=== PATIENT | female | born 1980 | race Caucasian/White ===

== ENCOUNTER 2016-09-05 14:43 | Emergency (ER) | payer SELFPAY | END 2016-09-05 17:16 | disposition home or self-care (01) | LOC: D.ER 14:43 | DX: S16.1XXA Strain of muscle, fascia and tendon at neck level, initial encounter (principal); V43.52XA Car driver injured in collision with other type car in traffic accident, initial encounter; Y93.89 Activity, other specified; Y92.410 Unspecified street and highway as the place of occurrence of the external cause; M62.838 Other muscle spasm; F41.9 Anxiety disorder, unspecified; F17.200 Nicotine dependence, unspecified, uncomplicated ==

== ENCOUNTER → 2017-09-24 21:41 | Emergency (ER) | payer OTHER | END | disposition home or self-care (01) | LOC: D.ER 21:41 | DX: K08.89 Other specified disorders of teeth and supporting structures (principal); S02.5XXA Fracture of tooth (traumatic), initial encounter for closed fracture; X58.XXXA Exposure to other specified factors, initial encounter; Y93.89 Activity, other specified; Y92.019 Unspecified place in single-family (private) house as the place of occurrence of the external cause ==

== ENCOUNTER 2020-03-29 07:49 | Inpatient (IN) | payer SELFPAY ==
[~2020-03-29] VITALS: Ht 162.6 cm; Wt 104.6 kg
[2020-03-29 08:14] LABS: BASOPHILS 0.2 % (0-2); EOSINOPHILS 0.8 % (0-7); HEMATOCRIT 42.3 % (36.0-48.0); HEMOGLOBIN 13.4 g/dL (12-16); IMMATURE GRANULOCYTES 0.4 % (0-5); LYMPHOCYTES 4.2 % (15-50); MCH 29.7 pg (26.0-34.0); MCHC 31.7 g/dL (31.0-37.0); MCV 93.8 fL (80.0-100.0); MEAN PLATELET VOLUME 9.1 fL (7.4-10.4); NEUTROPHILS 87.4 % (40-80); RBC 4.51 10x6/uL (4.00-5.40); RDW 13.3 % (11.5-14.5); WBC 12.5 10x3/uL (4.8-10.8)
[2020-03-29] MEDS ORDERED: CELEXA40 MG PO (08:14)
[2020-03-29] MEDS ORDERED: ESKALITH CR450 M1 PO (08:14)
[2020-03-29] MEDS ORDERED: KLONOPIN1 MG PO (08:15)
[2020-03-29 08:20] LABS: PLATELET COUNT 177 10x3/uL (130-400)
[2020-03-29 08:41] LABS: ANION GAP 10.3 mmol/L (8-16); CALCIUM 8.7 mg/dL (8.5-10.1); CARBON DIOXIDE 30.8 mmol/L (21.0-32.0); CREATININE - SERUM 1.3 mg/dL (0.6-1.3); POTASSIUM - SERUM 4.1 mmol/L (3.5-5.1)
[2020-03-29 08:46] LABS: ALBUMIN 3.3 g/dL (3.4-5.0); BILIRUBIN - TOTAL 1.06 mg/dL (0.2-1.3); PROTEIN - SERUM 6.8 g/dL (6.4-8.2)
[2020-03-29 08:48] LABS: BILIRUBIN NEGATIVE (NEGATIVE); KETONE NEGATIVE (NEGATIVE); NITRITE POSITIVE (NEGATIVE)
[2020-03-29 08:49] LABS: BACTERIA FEW HPF (NONE SEEN)
[2020-03-29] MEDS ORDERED: MACROBID100 MG PO (09:34)
[2020-03-29] MEDS ORDERED: KEFLEX500 MG PO (09:34)
[2020-03-29] MEDS ORDERED: PHENAZOPYRIDIN200 MG PO (09:35)
[2020-03-29 13:32] VITALS: BP 121/71
--- NOTE | 2020-03-29 14:25 | NUR ---
COVID SWAB OBTAINED AND SENT TO THE LAB.
--- NOTE | 2020-03-29 19:10 | NUR ---
REPORT TO SALOMÓN CAHARYA
--- NOTE | 2020-03-29 20:00 | NUR ---
RECEIVED PATIENT FROM ER TO UNIT. ASSESSMENT PERFORMED. PATIENT REQUESTS KLONOPIN WHEN AVAILABLE. DENIES PAIN MEDICINE AT THIS TIME. CALL LIGHT CLOSE. CPOC.
--- NOTE | 2020-03-29 21:05 | NUR ---
REQUESTS PRN PAIN MEDICATION FOR FLANK PAIN. TOLERATED WELL. DENIES FURTHER NEEDS AT THIS TIME. CALL LIGHT REMAINS CLOSE. CPOC.
[2020-03-29 22:25] VITALS: BP 129/63; Ht 162.6 cm; Wt 104.6 kg
[2020-03-30] VITALS: BP 99/48
[2020-03-30 04:00] VITALS: BP 99/57
[2020-03-30 06:31] LABS: BASOPHILS 0.2 % (0-2); EOSINOPHILS 1.7 % (0-7); HEMATOCRIT 37.6 % (36.0-48.0); HEMOGLOBIN 11.7 g/dL (12-16); IMMATURE GRANULOCYTES 0.6 % (0-5); LYMPHOCYTES 7.8 % (15-50); MCH 29.3 pg (26.0-34.0); MCHC 31.1 g/dL (31.0-37.0); MONOCYTES 10.2 % (2-11); NEUTROPHILS 79.5 % (40-80); PLATELET COUNT 180 10x3/uL (130-400); RDW 13.4 % (11.5-14.5)
[2020-03-30 06:37] LABS: WBC 8.5 10x3/uL (4.8-10.8)
[2020-03-30 07:29] LABS: ALBUMIN 2.6 g/dL (3.4-5.0); ANION GAP 10.9 mmol/L (8-16); BILIRUBIN - TOTAL 0.37 mg/dL (0.2-1.3); CALCIUM 8.2 mg/dL (8.5-10.1); CARBON DIOXIDE 26.9 mmol/L (21.0-32.0); POTASSIUM - SERUM 3.8 mmol/L (3.5-5.1); PROTEIN - SERUM 5.9 g/dL (6.4-8.2)
[2020-03-30 07:36] LABS: CREATININE - SERUM 0.9 mg/dL (0.6-1.3)
[2020-03-30 09:25] VITALS: BP 127/57
[2020-03-30 13:10] VITALS: BP 105/59
[2020-03-30 17:48] VITALS: BP 100/52
--- NOTE | 2020-03-30 20:00 | NUR ---
PATIENT RESTING IN BED WITH AT BEDISDE. NO S/S OF ACUTE DISTRESS. NO C/O AT THIS TIME. PATIENT HAS LEFT AC IV, SLAINE LOC. IV IS PATENT WITHOUT REDNESS, SWELLIN, OR TENDERNESS. IS UP ADLIB. CALL LIGHT WITHIN REACH. WILL CONTINUE TO MONITOR.
--- NOTE | 2020-03-30 21:55 | NUR ---
TORY AUSTIN, WAS CALLED ABOUT PATEINT'S REQUESTS ABOUT MEDICATIONS. PEPCID WAS ORDERED AND THE CELEXA TIME WAS CHANGED TO 2100 REQUESTED. CALL LIGHT WITHIN REACH. WILL CONTINUE TO MONITOR.
[2020-03-31] VITALS: BP 124/66
--- NOTE | 2020-03-31 03:20 | NUR ---
I have reviewed this patient and I concur with the Shift Assessment completed by the Licensed Practical Nurse today this shift.
[2020-03-31 04:00] VITALS: BP 107/61; BP 112/72
[2020-03-31 06:52] LABS: BASOPHILS 0.3 % (0-2); EOSINOPHILS 3.7 % (0-7); HEMATOCRIT 38.4 % (36.0-48.0); HEMOGLOBIN 11.8 g/dL (12-16); IMMATURE GRANULOCYTES 0.6 % (0-5); LYMPHOCYTES 12.6 % (15-50); MCH 29.1 pg (26.0-34.0); MCHC 30.7 g/dL (31.0-37.0); MCV 94.6 fL (80.0-100.0); MEAN PLATELET VOLUME 10.1 fL (7.4-10.4); MONOCYTES 10.4 % (2-11); NEUTROPHILS 72.4 % (40-80); PLATELET COUNT 197 10x3/uL (130-400); RBC 4.06 10x6/uL (4.00-5.40); RDW 13.2 % (11.5-14.5)
[2020-03-31 06:55] LABS: WBC 6.3 10x3/uL (4.8-10.8)
--- NOTE | 2020-03-31 07:30 | NUR ---
REC'D IN BED AWAKE AND ALERT. RESP EVEN AND UNLABORED WITH NO DISTRESS NOTED. CAN EXPRESS NEEDS AND WANTS. NO C/O NOTED OR VOICED AT THIS TIME. ASSESSMENT COMPLETED. C/L IN REACH AT BEDSIDE.
[2020-03-31 07:45] LABS: ALBUMIN 2.6 g/dL (3.4-5.0); ANION GAP 9.7 mmol/L (8-16); BILIRUBIN - TOTAL 0.22 mg/dL (0.2-1.3); CALCIUM 8.7 mg/dL (8.5-10.1); CARBON DIOXIDE 26.2 mmol/L (21.0-32.0); POTASSIUM - SERUM 3.9 mmol/L (3.5-5.1); PROTEIN - SERUM 6.7 g/dL (6.4-8.2)
--- NOTE | 2020-03-31 09:30 | NUR ---
WAS CALLED TO PT ROOM TO INQUIRE ABOUT MEDICATION AT THIS TIME. EVERY QUESTION ASKED WAS EXPLAINED TO PT BY THIS NURSE. PT VOICED UNDERSTANDING. C/L IN REACH AT BEDSIDE.
--- NOTE | 2020-03-31 10:25 | NUR ---
PATIENT SLEEPING. AROUSES TO VOICE. DENIES PAIN OR NEEDS AT THIS TIME. BED LOW POSITION, CALL LIGHT IN REACH. FREE FROM SIGNS OF DISTRESS. WILL CONTINUE TO MONITOR.
--- NOTE | 2020-03-31 10:39 | NUR ---
PT WAS MEDICATED WITH TORADAL AT THIS TIME FOR C/O BACK PAIN. C/L IN REACH AT BEDSIDE.
[2020-03-31 10:43] VITALS: BP 102/51
--- NOTE | 2020-03-31 12:30 | NUR ---
THIS NURSE WAS CALLED BACK TO PT ROOM AGAIN VIA PT TO ASK MORE QUESTION ABOUT MEDICATION. NURSE EXPLAIN QUESTION ASKED. PT VOICED UNDERSTANDING.
[2020-03-31 13:03] VITALS: BP 107/67
--- NOTE | 2020-03-31 15:45 | NUR ---
NURSE WAS INFORMED BY [employer] THAT PT WANTED TO SPEAK WITH ME. NURSE ENTERS ROOM PT STATES " WHERE IS MY MEDICATION THAT IS DUE." NURSE INFORMED PT THAT SHE HAS NO MEDICATION DUE AT THIS TIME AND THAT SHE REC'D HER KLONOPIN AT 1300 AND THE NEXT DOSE IS NOT DUE UNTIL 1700. PT THEN STATED " I AM TALKING ABOUT MY PAIN MEDICATION. " NURSE INFORMED PT THAT HER PAIN MEDICATION IS PRN AND THAT SHE HAS TO ASK FOR IT THAT WE JUST DONT BRING IT LIKE SHE SCHEDULED MEDS. PT AGAIN VOICES UNDERSTANDING. C/L IN REACH AT BEDSIDE.
--- NOTE | 2020-03-31 15:58 | NUR ---
WAS MEDICATED WITH NORCO AT THIS TIME FOR C/O PAIN. C/L IN REACH AT BEDSIDE.
--- NOTE | 2020-03-31 16:45 | NUR ---
DR ERICKSON HERE MAKING ROUNDS AND REC'D ORDERS FOR OCCULT STOOL D/T PT STATING SHE WAS HAVING BLOOD IN HER STOOL.
[2020-03-31 17:22] VITALS: BP 140/80
--- NOTE | 2020-03-31 20:00 | NUR ---
PATIENT RESTING IN BED WATCHING TV. NO S/S OF ACUTE DISTRESS. PATIENT C/O OF CARE THAT SHE RECIEVED TODAY WITH DAYSHIFT NURSE. PATIENT IS CONFUSED AND ANXIOUS BECAUSE HER MEDICINES WERE CHANGED AND SHE IS OFF THE ROCEPHIN. I EXPLAINED TO PATIENT THAT I HAVE NO CONTROL ON WHAT THE DOCTOR DOES, BUT SHE CAN ASK THE DOCTOR IN THE MORNING ABOUT THE ROCEPHIN. I TOLD THE PATIENT THAT SHE CAN TALK TO THE JUDGE ABOUT THE DAYSHIFT NURSE AND REQUEST THAT SHE NOT HAVE HER AGAIN. PATIENT HAS LEFT AC, SALINE LOC. IV IS PATENT WITHOUT REDNESS, SWELLING, OR TENDERNESS. PATEINT IS UP ADLIB TO THE BATHROOM. CALL LIGHT WITHIN REACH. WILL CONTINUE TO MONITOR.
[2020-03-31 21:08] VITALS: BP 130/69
--- NOTE | 2020-03-31 23:30 | NUR ---
PATIENT TOOK OFF ALL OF THE ADHEDSIVE THAT WAS KEEPING HER IV SECURE. PATIENT SAID "IT HAD PUS AND WAS SMELLING WERID". WHEN I HAD PUSHED HER ZOFRAN AND TORADOL AND THE IV NEITHER HAD PUS, REDNESS, OR "SMELLED WEIRD". PATIENT IS ONLY GETTING IV ZOFRAN THROUGH HER IV. SALOMÓN TAMAYO, OFFERED TO CALL THE DOCTOR AND CHANGE HER ZOFRAN TO THE SUBLINGUAL ZOFRAN SO SHE WOULDN'T HAVE TO GET ANOTHER IV. PATIENT REFUSED SAYING "OH NO, THAT DOESN'T WORK". WILL ATTEMPT ANOTHER IV. CALL LIGHT WITHIN REACH. WILL CONTINUE TO MONITOR.
[2020-04-01 01:14] VITALS: BP 98/57
--- NOTE | 2020-04-01 01:55 | NUR ---
I have reviewed this patient and I concur with the Shift Assessment completed by the Licensed Practical Nurse today this shift.
[2020-04-01 05:48] LABS: BASOPHILS 0.4 % (0-2); EOSINOPHILS 4.4 % (0-7); HEMATOCRIT 37.5 % (36.0-48.0); HEMOGLOBIN 11.6 g/dL (12-16); IMMATURE GRANULOCYTES 0.7 % (0-5); LYMPHOCYTES 18.7 % (15-50); MCH 29.1 pg (26.0-34.0); MCHC 30.9 g/dL (31.0-37.0); MONOCYTES 9.8 % (2-11); PLATELET COUNT 230 10x3/uL (130-400); RBC 3.99 10x6/uL (4.00-5.40); RDW 13.1 % (11.5-14.5); WBC 5.5 10x3/uL (4.8-10.8)
[2020-04-01 05:57] VITALS: BP 165/93
[2020-04-01 06:05] LABS: ALBUMIN 2.7 g/dL (3.4-5.0); BILIRUBIN - TOTAL 0.16 mg/dL (0.2-1.3); CALCIUM 8.7 mg/dL (8.5-10.1); CARBON DIOXIDE 28.7 mmol/L (21.0-32.0); CREATININE - SERUM 1.1 mg/dL (0.6-1.3); POTASSIUM - SERUM 3.7 mmol/L (3.5-5.1); PROTEIN - SERUM 6.3 g/dL (6.4-8.2)
[2020-04-01 09:27] VITALS: BP 91/60
[2020-04-01 12:00] VITALS: BP 112/64
[2020-04-01 18:06] VITALS: BP 102/55
[2020-04-01 20:00] VITALS: BP 94/38
--- NOTE | 2020-04-01 21:10 | NUR ---
ASSUMED CARE OF PATIENT AT 1900, PATIENT [id number] SITTING UP IN BED, NO DISTRESS NOTED, DENIES NEEDS AT THIS TIME, WILL CONTINUE TO MONITOR PATIENT, CALL LIGHT WITHIN REACH
[2020-04-02 04:00] VITALS: BP 127/72
[2020-04-02 06:20] LABS: BASOPHILS 0.6 % (0-2); EOSINOPHILS 4.1 % (0-7); HEMATOCRIT 38.3 % (36.0-48.0); HEMOGLOBIN 12.1 g/dL (12-16); IMMATURE GRANULOCYTES 1.4 % (0-5); MCH 29.8 pg (26.0-34.0); MCHC 31.6 g/dL (31.0-37.0); MCV 94.3 fL (80.0-100.0); MEAN PLATELET VOLUME 9.8 fL (7.4-10.4); MONOCYTES 8.6 % (2-11); NEUTROPHILS 64.3 % (40-80); PLATELET COUNT 228 10x3/uL (130-400); RBC 4.06 10x6/uL (4.00-5.40); RDW 12.9 % (11.5-14.5); WBC 6.5 10x3/uL (4.8-10.8)
[2020-04-02 06:48] LABS: ALBUMIN 2.7 g/dL (3.4-5.0); ANION GAP 9.7 mmol/L (8-16); BILIRUBIN - DIRECT 0.03 mg/dL (0.00-0.30); BILIRUBIN - INDIRECT 0.15 mg/dL (0.00-1.00); BILIRUBIN - TOTAL 0.18 mg/dL (0.2-1.3); CALCIUM 8.9 mg/dL (8.5-10.1); CARBON DIOXIDE 27.5 mmol/L (21.0-32.0); CREATININE - SERUM 1.1 mg/dL (0.6-1.3); POTASSIUM - SERUM 4.2 mmol/L (3.5-5.1); PROTEIN - SERUM 6.5 g/dL (6.4-8.2)
[2020-04-02 08:00] VITALS: BP 92/49
[2020-04-02] MEDS ORDERED: PHENERGAN25 M1 PO (11:49)
[2020-04-02] MEDS ORDERED: ESKALITH CR450 M1 PO (11:52)
[2020-04-02] MEDS ORDERED: PEPCID PO (11:52)
[2020-04-02] MEDS ORDERED: CELEXA20 MG PO (11:52)
[2020-04-02] MEDS ORDERED: oxyCODONE IR PO (11:52)
[2020-04-02] MEDS ORDERED: CARAFATE1 G PO (11:53)
[2020-04-02] MEDS ORDERED: ZANAFLEX4 MG PO (11:54)
--- NOTE | 2020-04-02 13:53 | NUR ---
DISCHARGE PAPERWORK SIGNED, ALL QUESTIONS ANSWERED. IV TO RIGHT FOREARM DC'D. TIP INTACT. ESCORTED OUT VIA WHEELCHAIR.
== END 2020-04-02 13:54 | disposition home or self-care (01) | DRG 690 ==
LOC: D.ER 07:49 → D.EDHOLD 16:45 → D.MS 16:45
PROVIDERS: Emergency Medicine; Family Medicine; ADMIT Legal Medicine; ATTEND Legal Medicine
DX: N12 Tubulo-interstitial nephritis, not specified as acute or chronic (principal); N39.0 Urinary tract infection, site not specified; F31.9 Bipolar disorder, unspecified; D72.829 Elevated white blood cell count, unspecified; K76.0 Fatty (change of) liver, not elsewhere classified; K29.70 Gastritis, unspecified, without bleeding